=== PATIENT | male | born 1980 | race Caucasian/White ===

== ENCOUNTER 2017-12-23 21:50 | Emergency (ER) | payer BC ==
[~2017-12-23] VITALS: Ht 175.3 cm; Wt 108.9 kg
[2017-12-23 22:18] VITALS: BP 124/61
[2017-12-23] MEDS ORDERED: NORCO 10MG PO STA ×2 (22:32→23:53)
[2017-12-23] MEDS ORDERED: MOTRIN PO STA (22:32)
[2017-12-23] MEDS ORDERED: MOTRIN ONE (22:34)
[2017-12-23] MEDS ORDERED: NORCO 10MG PO ONE (22:35)
[2017-12-23 23:02] VITALS: BP 125/76
--- NOTE | 2017-12-23 23:19 | DIREP ---
PROCEDURE:XRAY KNEE 4 VIEWS COMPARISON:None. INDICATIONS:Right knee pain FINDINGS: Four views of the right knee. Moderate right knee effusion. Tiny ossific fragment or linear calcification at the lateral aspect of the knee may be related to the joint capsule. No fracture or dislocation identified. No radiopaque foreign body. CONCLUSION: 1. Moderate right knee effusion. If symptoms persist, MRI may be suggested to assess for internal derangement. Dictated by: Maria C Cueto MD on 12/23/2017 at 11:14 PM
--- NOTE | 2017-12-23 23:52 | ER.PDOC ---
General Chief Complaint: Extremities Stated Complaint: R KNEE PAIN Time seen by MD: 22:30 Source: patient Exam Limitations: no limitations History of Present Illness Initial Comments The patient is a 37 y.o. male presenting for evaluation of right knee pain and swelling after table fell against right knee. The patient denies any other areas of pain/injury. Pain is moderate and aching in nature. Denies distal numbness or tingling. Denies any recent illness or other complaints Allergies: Coded Allergies: No Known Allergies (Unverified , 02/16/15) Home Meds No Active Prescriptions or Reported Meds Past Medical History Medical History: asthma, high cholesterol Surgical History: back, cholecystectomy, other (Lumbar fusion surgery) Social History Smoking: chew Alcohol Use: heavy Drug Use: none Reviewed Nursing Reviewed: Vital Signs, Abn. Noted, Nursing Assessment Review of Systems Constitutional: denies chills, denies diaphoresis, denies fever Musculoskeletal: denies back pain, denies neck pain Skin: denies change in color, denies dryness, denies rash All Other Systems: Reviewed and Negative Physical Exam Comments Vital Signs: please see electronic medical record. General: The patient is pleasant, resting comfortably, no obvious distress. HEENT: Patient normocephalic, atraumatic, with no gross pupillary abnormalities. Eyes: No injection, no significant icterus, otherwise normal. Neck: Gross observation of the neck is unremarkable. Respiratory: No respiratory distress. Neuro: The pt is awake. Alert and interactive. Grossly normal neurological exam. Psych: Normal Affect, normal speech. Skin: No laceration. MS: ttp and swelling over the patella and tibial plateau area of the right knee , neg anterior/posterior drawer sign, no lacerations. Distal CMS wnl. Results/Orders Results/Orders Administered Medications Medications (Trade) Dose Ordered Sig/Cornel Route PRN Reason Start Time Stop Time Status Last Admin Dose Admin Acetaminophen/ Hydrocodone Bitart (Stirling 10mg) 1 each OT STAT PO 12/23/17 22:32 12/23/17 22:33 DC 12/23/17 22:36 Ibuprofen (Motrin) 800 mg STAT STAT PO 12/23/17 22:32 12/23/17 22:33 DC 12/23/17 22:36 Progress Progress Patient presents with knee sprain. The patient also has no evidence for significant infectious process, arterial/ vascular or nervous injury. Internal derangement, occult fracture, or ligamentous/tendinous injury cannot be excluded at this time. Patient will be treated as an occult significant injury with knee immobilization and a knee immobilizer was placed here today. The patient was also given crutches and instructions to be limited weight bearing until reevaluated in clinic or with orthopedics or PCP within the next 4 -5 days if significant symptoms remain, may need outpatient MRI. Scripts provided for Leigh and Praneeth. Departure Time of Disposition: 23:45 Disposition: 01 HOME, SELF-CARE Impression: Primary Impression: Contusion of right knee Additional Impression: Right knee sprain Condition: Stable Patient Instructions: Knee Bracing, Knee Sprain Additional Instructions: Please follow up with your PCP in the next 5-7 days for eval for MRI of the right knee. Scripts No Active Prescriptions or Reported Meds Duration or Time Spent with Pa: 15 CAROL ANN REICH D0 Dec 23, 2017 23:52
[2017-12-24] VITALS: BP 128/60
--- NOTE | 2017-12-24 00:08 | NUR ---
KNEE IMMOBILIZER APPLIED TO RIGHT KNEE, EDUCATION PROVIDED. PT HAS PERSONAL CRUTCHES-EDUCATION REFUSED.
[2017-12-24] MEDS ORDERED: NORCO 10MG PO ONE (00:09)
[2017-12-24 00:37] VITALS: BP 128/60
== END 2017-12-24 00:20 | disposition home or self-care (01) ==
LOC: ER 21:50
DX: S80.01XA Contusion of right knee, initial encounter (principal); J45.909 Unspecified asthma, uncomplicated; E78.00 Pure hypercholesterolemia, unspecified; F10.10 Alcohol abuse, uncomplicated; Z90.49 Acquired absence of other specified parts of digestive tract; Z98.890 Other specified postprocedural states; W22.03XA Walked into furniture, initial encounter; Y93.89 Activity, other specified; Y92.89 Other specified places as the place of occurrence of the external cause; Y99.8 Other external cause status
CPT/HCPCS: 99284; 73564-RT

== ENCOUNTER 2019-06-28 00:11 | Emergency (ER) | payer OTHER ==
[~2019-06-28] VITALS: Ht 175.3 cm; Wt 86.2 kg
[2019-06-28 02:57] VITALS: BP 128/71
[2019-06-28 03:02] VITALS: BP 128/71
[2019-06-28] MEDS ORDERED: FUL-GLO OP ONE (03:07)
--- NOTE | 2019-06-28 03:24 | ER.PDOC ---
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 Patient flushed both eyes several times. Timing/Duration: yesterday Associated Symptoms: foreign body sensation Location: both eyes Severity: moderate Context: foreign body, welding exposure Where: work Allergies: Coded Allergies: No Known Allergies (Unverified , 02/16/15) Home Meds No Active Prescriptions or Reported Meds Past Medical History Medical History: no pertinent history Surgical History: back, cholecystectomy Social History Alcohol Use: none Drug Use: none Constitutional: no symptoms reported Eyes: see HPI Throat: no symptoms reported Respiratory: no symptoms reported Cardiovascular: no symptoms reported Gastrointestinal: no symptoms reported All Other Systems: Reviewed and Negative Physical Exam General Appearance: alert, no distress Visual Acuity: no globe trauma Eyelid: nml inspection Conjunctiva/Sclera: (R) injected, (L) injected Corneas: nml inspection, exam w/flurescein (R), exam w/flurescein (L) EOM's: intact, no nystagmus Pupils: PERRL, nml accommodation Skin Exam: Normal Color, Warm/Dry Neck/Back: nml inspection, painless ROM Resp/CVS: no resp distress, lungs clear, heart sounds nml, reg. rate & rhythm Abdomen: non-tender, no organomegaly NEURO/PSYCH: oriented X3, mood/effect nml Results/Orders Results/Orders Vital Signs Date Time Temp Pulse Resp B/P (MAP) Pulse Ox O2 Delivery O2 Flow Rate FiO2 06/28/19 03:02 97.8 63 18 128/71 (90) 97 Room Air 06/28/19 02:57 97.8 63 18 06/28/19 02:57 97.8 63 18 97 Progress Progress No foreign body seen in both eyes and no corneal abrasion with staining. Course Duration or Total Time Spent w: 15 Vitals & review Data Vital Sign - Last 24 Hours 06/28/19 06/28/19 06/28/19 02:57 02:57 03:02 Temp 97.8 97.8 97.8 Pulse 63 63 63 Resp 18 18 18 B/P (MAP) 128/71 (90) Pulse Ox 97 97 O2 Delivery Room Air O2 Sat by Pulse Oximetry: 97 Departure Time of Disposition: 03:22 Disposition: 01 HOME, SELF-CARE Impression: Primary Impression: Foreign body, eye Condition: Stable Referrals: Maico ODONNELL (PCP) PRIMARY CARE PROVIDER Additional Instructions: F/U with [facility] at [facility] tomorrow if no improvement. Return to ED if worsening or concerns. Scripts No Active Prescriptions or Reported Meds Duration or Time Spent with Pa: 10 mins Problem Qualifiers Primary Impression: Foreign body, eye Encounter type: initial encounter Laterality: unspecified laterality Qualified Codes: T15.90XA - Foreign body on external eye, part unspecified, unspecified eye, initial encounter MARISA FAYE MD Jun 28, 2019 03:24
== END 2019-06-28 03:44 | disposition home or self-care (01) ==
LOC: ER 00:11
DX: T15.91XA Foreign body on external eye, part unspecified, right eye, initial encounter (principal); T15.92XA Foreign body on external eye, part unspecified, left eye, initial encounter; Z90.49 Acquired absence of other specified parts of digestive tract; W45.8XXA Other foreign body or object entering through skin, initial encounter; Y93.89 Activity, other specified; Y92.89 Other specified places as the place of occurrence of the external cause; Y99.8 Other external cause status
CPT/HCPCS: 99283